=== PATIENT | male | born 1940 | race Caucasian/White ===

== ENCOUNTER 2018-12-22 19:56 | Inpatient (IN) | payer OTHER ==
[~2018-12-22] VITALS: Ht 177.8 cm; Wt 82.9 kg
[2018-12-22 20:02] VITALS: Ht 177.8 cm; Wt 82.9 kg
[2018-12-22 20:40] VITALS: BP 83/53
[2018-12-22 20:55] LABS: CALCIUM 10.1 mg/dL (8.5-10.1); CARBON DIOXIDE 24.1 mmol/L (21-32); CHLORIDE SERUM 99 mmol/L (98-107); CREATININE SERUM 1.3 mg/dL (0.7-1.3); GLUCOSE SERUM 269 mg/dL (74-106); POTASSIUM SERUM 4.9 mmol/L (3.5-5.1); SODIUM SERUM 132 mmol/L (136-145)
[2018-12-22 20:58] LABS: BASOPHIL % 0.5 % (0-2); PLATELET COUNT 283 x10^3mcL (130-400)
[2018-12-22 21:00] LABS: ALBUMIN 2.9 g/dL (3.4-5.0); ALKALINE PHOSPHATASE 151 U/L (46-116); ALT/SGPT 49 U/L (16-63); AST/SGOT 58 U/L (15-37); BILIRUBIN TOTAL 0.6 mg/dL (0.20-1.00); TOTAL PROTEIN, SERUM 6.3 g/dL (6.4-8.2)
[2018-12-22 21:04] LABS: RED CELL DISTRIBUTION WIDTH 19.2 % (11.5-14.5)
[2018-12-22] MEDS ORDERED: BRILINTA90 M1 PO (23:16)
[2018-12-22] MEDS ORDERED: ASPIR 8181 MG PO (23:16)
[2018-12-22] MEDS ORDERED: FUROSEMIDE20 MG PO (23:16)
[2018-12-22] MEDS ORDERED: TAMSULOSIN HCL0.4 MG PO (23:17)
[2018-12-22] MEDS ORDERED: ALDACTONE25 MG PO (23:17)
[2018-12-22] MEDS ORDERED: LIPITOR80 MG PO (23:17)
[2018-12-22] MEDS ORDERED: CARVEDILOL3.125 M1 PO (23:17)
[2018-12-22] MEDS ORDERED: SYMBICORT1 AE3 INH (23:17)
[2018-12-22] MEDS ORDERED: LISINOPRIL2.5 MG PO (23:18)
[2018-12-22] MEDS ORDERED: NITROGLYCERIN0.4 MG SL (23:18)
[2018-12-23] VITALS (18 sets, daily range): BP systolic 92–114; BP diastolic 51–77
[2018-12-23 04:40] LABS: PLATELET COUNT 261 x10^3mcL (130-400)
[2018-12-23 04:55] LABS: CALCIUM 8.8 mg/dL (8.5-10.1); CARBON DIOXIDE 23.6 mmol/L (21-32); CHLORIDE SERUM 100 mmol/L (98-107); CREATININE SERUM 1.4 mg/dL (0.7-1.3); GLUCOSE SERUM 164 mg/dL (74-106); HDL CHOLESTEROL 51 mg/dL (40-60); POTASSIUM SERUM 3.9 mmol/L (3.5-5.1); SODIUM SERUM 133 mmol/L (136-145); TRIGLYCERIDES 43 mg/dL (<150)
[2018-12-23 05:10] LABS: CHOLESTEROL 110 mg/dL (<200); CHOLESTEROL/HDL RATIO 2.2
[2018-12-23 05:11] LABS: RED CELL DISTRIBUTION WIDTH 18.4 % (11.5-14.5)
[2018-12-23 14:40] LABS: BASOPHIL % 0.2 % (0-2); PLATELET COUNT 224 x10^3mcL (130-400)
[2018-12-23 14:41] LABS: RED CELL DISTRIBUTION WIDTH 19.2 % (11.5-14.5)
[2018-12-23 15:14] LABS: UA SPECIFIC GRAVITY >=1.030 (1.005-1.035); microscopic required? YES; urine erythrocyte 3+ (NEGATIVE)
[2018-12-23 15:59] LABS: AMPHETAMINE QUAL UR NONE DETECTED (See below)
[2018-12-24] VITALS (19 sets, daily range): BP systolic 76–122; BP diastolic 43–78
[2018-12-24 09:16] LABS: BASOPHIL % 0.2 % (0-2); PLATELET COUNT 175 x10^3mcL (130-400); RED CELL DISTRIBUTION WIDTH 18.7 % (11.5-14.5)
[2018-12-24 09:27] LABS: ALKALINE PHOSPHATASE 82 U/L (46-116); ALT/SGPT 91 U/L (16-63); AST/SGOT 749 U/L (15-37); BILIRUBIN TOTAL 0.9 mg/dL (0.20-1.00); CALCIUM 7.8 mg/dL (8.5-10.1); CHLORIDE SERUM 102 mmol/L (98-107); GLUCOSE SERUM 155 mg/dL (74-106); MAGNESIUM 1.9 mg/dL (1.8-2.4); PHOSPHOROUS 4.2 mg/dL (2.5-4.9); POTASSIUM SERUM 4.8 mmol/L (3.5-5.1); SODIUM SERUM 135 mmol/L (136-145)
[2018-12-24 09:31] LABS: ALBUMIN 2.4 g/dL (3.4-5.0); TOTAL PROTEIN, SERUM 5.6 g/dL (6.4-8.2)
[2018-12-25] VITALS (18 sets, daily range): BP systolic 84–109; BP diastolic 40–65
[2018-12-25 03:20] LABS: BASOPHIL % 0.4 % (0-2); PLATELET COUNT 169 x10^3mcL (130-400)
[2018-12-25 03:25] LABS: RED CELL DISTRIBUTION WIDTH 18.1 % (11.5-14.5)
[2018-12-25 03:49] LABS: CALCIUM 7.7 mg/dL (8.5-10.1); CHLORIDE SERUM 102 mmol/L (98-107); CREATININE SERUM 1.1 mg/dL (0.7-1.3); GLUCOSE SERUM 164 mg/dL (74-106); POTASSIUM SERUM 4.6 mmol/L (3.5-5.1); SODIUM SERUM 132 mmol/L (136-145)
[2018-12-26] VITALS (19 sets, daily range): BP systolic 87–111; BP diastolic 47–69
[2018-12-26 06:54] LABS: BASOPHIL % 0.6 % (0-2); PLATELET COUNT 162 x10^3mcL (130-400)
[2018-12-26 07:42] LABS: RED CELL DISTRIBUTION WIDTH 17.9 % (11.5-14.5)
[2018-12-26 07:56] LABS: ALBUMIN 2.7 g/dL (3.4-5.0); ALKALINE PHOSPHATASE 88 U/L (46-116); BILIRUBIN TOTAL 1.66 mg/dL (0.20-1.00); CALCIUM 7.5 mg/dL (8.5-10.1); CARBON DIOXIDE 21.3 mmol/L (21-32); CHLORIDE SERUM 101 mmol/L (98-107); CREATININE SERUM 1.3 mg/dL (0.7-1.3); GLUCOSE SERUM 146 mg/dL (74-106); POTASSIUM SERUM 4.3 mmol/L (3.5-5.1); SODIUM SERUM 131 mmol/L (136-145); TOTAL PROTEIN, SERUM 5.6 g/dL (6.4-8.2)
[2018-12-26 07:57] LABS: ALT/SGPT 1922 U/L (16-63)
[2018-12-26 08:49] LABS: AST/SGOT 2733 U/L (15-37)
[2018-12-27] VITALS (18 sets, daily range): BP systolic 80–111; BP diastolic 48–68
[2018-12-27 05:24] LABS: BASOPHIL % 0.3 % (0-2)
[2018-12-27 05:32] LABS: PLATELET COUNT 83 x10^3mcL (130-400); RED CELL DISTRIBUTION WIDTH 17.3 % (11.5-14.5)
[2018-12-27 05:51] LABS: ALBUMIN 2.5 g/dL (3.4-5.0); ALKALINE PHOSPHATASE 102 U/L (46-116); AST/SGOT 1543 U/L (15-37); BILIRUBIN TOTAL 2.28 mg/dL (0.20-1.00); CALCIUM 7.2 mg/dL (8.5-10.1); CARBON DIOXIDE 26.2 mmol/L (21-32); CHLORIDE SERUM 103 mmol/L (98-107); CREATININE SERUM 0.9 mg/dL (0.7-1.3); GLUCOSE SERUM 138 mg/dL (74-106); POTASSIUM SERUM 3.9 mmol/L (3.5-5.1); SODIUM SERUM 135 mmol/L (136-145); TOTAL PROTEIN, SERUM 4.8 g/dL (6.4-8.2)
[2018-12-27 05:52] LABS: ALT/SGPT 1706 U/L (16-63)
== END 2018-12-27 23:21 | disposition short-term general hospital (02) | DRG 280 ==
LOC: ED 19:56 → IC 22:11
PROVIDERS: Emergency Medicine; Internal Medicine Cardiovascular Disease; ADMIT Internal Medicine
PROC: 0BH17EZ Insertion of Endotracheal Airway into Trachea, Via Natural or Artificial Opening (ICD-10-PCS; 2018-12-23)
PROC: 5A1223Z Performance of Cardiac Pacing, Continuous (ICD-10-PCS; 2018-12-23)
PROC: 02HV33Z Insertion of Infusion Device into Superior Vena Cava, Percutaneous Approach (ICD-10-PCS; 2018-12-23)
PROC: B548ZZA Ultrasonography of Superior Vena Cava, Guidance (ICD-10-PCS; 2018-12-23)
PROC: 04HY32Z Insertion of Monitoring Device into Lower Artery, Percutaneous Approach (ICD-10-PCS; 2018-12-23)
PROC: 5A1945Z Respiratory Ventilation, 24-96 Consecutive Hours (ICD-10-PCS; principal; 2018-12-23 09:15)
DX: I21.4 Non-ST elevation (NSTEMI) myocardial infarction (principal); J96.01 Acute respiratory failure with hypoxia; R57.0 Cardiogenic shock; K72.00 Acute and subacute hepatic failure without coma; I44.2 Atrioventricular block, complete; I13.0 Hypertensive heart and chronic kidney disease with heart failure and stage 1 through stage 4 chronic kidney disease, or unspecified chronic kidney disease; I42.9 Cardiomyopathy, unspecified; N17.9 Acute kidney failure, unspecified; J44.9 Chronic obstructive pulmonary disease, unspecified; I50.9 Heart failure, unspecified; I25.10 Atherosclerotic heart disease of native coronary artery without angina pectoris; Z95.1 Presence of aortocoronary bypass graft; N18.3 Chronic kidney disease, stage 3 (moderate); E78.5 Hyperlipidemia, unspecified; I95.9 Hypotension, unspecified; D63.8 Anemia in other chronic diseases classified elsewhere; D69.6 Thrombocytopenia, unspecified; E11.22 Type 2 diabetes mellitus with diabetic chronic kidney disease
CPT/HCPCS: 36556; 36600; 82962; 83880; 85378; 86022; A4628; C1769; C9113; J0461; J0690; J1265; J1644; J1940; J2001; J2060; J2250; J2543; J2704; J3010; J3490; J7030; J7040; J7050; J7620; P9016; P9047; Q0092